=== PATIENT | male | born 1970 ===

== ENCOUNTER 2018-01-21 11:00 | Inpatient (IN) | payer OTHER ==
[~2018-01-21] VITALS: Ht 188 cm; Wt 89.4 kg
[2018-01-21] MEDS ORDERED: ZYRTEC10 M3 PO (12:04)
[2018-01-21] MEDS ORDERED: ZANTAC 7575 MG PO (12:04)
== END 2018-01-30 11:52 | disposition home or self-care (01) | DRG 331 ==
LOC: O/R 01-28 05:50 → SURH 01-28 05:50 → O/R 01-28 07:00 → SURH 01-28 10:25 → O/R 01-28 11:00 → SURH 01-30 11:52
PROVIDERS: Colon & Rectal Surgery
PROC: 0DTN4ZZ Resection of Sigmoid Colon, Percutaneous Endoscopic Approach (ICD-10-PCS; principal; 2018-01-28 07:00)
DX: K57.32 Diverticulitis of large intestine without perforation or abscess without bleeding (principal)

== ENCOUNTER 2019-02-20 10:10 | Day surgery (SDC) | payer OTHER ==
[~2019-02-20 10:10] MED LIST: ZANTAC 7575 MG PO; ZYRTEC10 M3 PO
== END 2019-02-20 16:50 | disposition home or self-care (01) ==
LOC: AMB-ENDOS 10:10
DX: K57.32 Diverticulitis of large intestine without perforation or abscess without bleeding (principal); K64.1 Second degree hemorrhoids

== ENCOUNTER 2021-01-20 06:00 | Day surgery (SDC) | payer OTHER | END 2021-01-20 09:40 | disposition home or self-care (01) | LOC: AMB-ENDOS 06:00 | PROVIDERS: ATTEND Colon & Rectal Surgery | DX: K57.32 Diverticulitis of large intestine without perforation or abscess without bleeding (principal); K64.0 First degree hemorrhoids; Z20.822 Contact with and (suspected) exposure to COVID-19 ==